=== PATIENT | male | born 1955 | race Two or more races ===

== ENCOUNTER 2024-12-25 00:25 | Emergency (ER) | payer OTHER ==
[~2024-12-25] VITALS: Ht 167.6 cm; Wt 56.6 kg
--- NOTE | 2024-12-25 00:55 | ED.PDOC ---
GI ASSESSMENT HPI Comments 69-year-old male with history of diabetes brought in by family for evaluation of upper abdominal pain radiating to the back since last night. Patient states he had similar symptoms in the past but was never evaluated by a physician. He states he has been experiencing abdominal pain since 7:00 p.m. last night. Patient describes the pain as sharp/ripping, constant, severe, and radiating to the mid back. He denies any fever, nausea, vomiting, diarrhea, constipation or dysuria. Chief Complaint: Abdominal Pain Time Seen by MD: 00:55 Reviewed Notes: Nurses Notes Allergies: Coded Allergies: NO KNOWN ALLERGIES (Unverified , 12/25/24) Information Source: Patient, Relative Mode of Arrival: Ambulatory Timing: Hours Duration: Since onset Quality: Sharp Vomitus: Watery Stool: Normal Severity: Moderate Recent: None Recent Hx of: None Pain Location: Epigastric, RUQ, LUQ Modifying Factors: Nothing Associated sign and symptoms: Abdominal Pain, Other (Back pain) Past Medical History PAST MEDICAL HISTORY: DM Surgical History: Denies all surgeries Family History Family History: Reviewed,noncontributory to illness Social History Smoker: Non-Smoker Alcohol: Occasionally Drugs: Denies Drug Use Lives In: Home Constitutional: denies: chills, diaphoresis, fatigue, fever, malaise, sweats, weakness, others EENTM: denies: blurred vision, double vision, ear bleeding, ear discharge, ear drainage, ear pain, ear ringing, eye pain, eye redness, hearing loss, mouth pain, mouth swelling, nasal discharge, nose bleeding, nose congestion, nose pain, photophobia, tearing, throat pain, throat swelling, voice changes, others Respiratory: denies: cough, hemoptysis, orthopnea, SOB at rest, shortness of breath, SOB with excertion, stridor, wheezing, others Cardiovascular: denies: chest pain, dizzy spells, diaphoresis, Dyspnea on exertion, edema, irregular heart beat, left arm pain, lightheadedness, palpitations, PND, syncope, others Gastrointestinal: reports: abdominal pain; denies: abdomen distended, blood streaked bowels, constipated, diarrhea, dysphagia, difficulty swallowing, hematemesis, melena, nausea, poor appetite, poor fluid intake, rectal bleeding, rectal pain, vomiting, others Genitourinary: denies: burning, dysuria, flank pain, frequency, hematuria, incontinence, penile discharge, penile sore, pain, testicle pain, testicle swelling, urgency, others Neurological: denies: dizziness, fainting, headache, left sided numbness, left sided weakness, numbness, paresthesia, pre-existing deficit, right sided numbness, right sided weakness, seizure, speech problems, tingling, tremors, weakness, others Musculoskeletal: reports: back pain; denies: gout, joint pain, joint swelling, muscle pain, muscle stiffness, neck pain, others Integumetry: denies: bruises, change in color, change in hair/nails, dryness, laceration, lesions, lumps, rash, wounds, others Allergic/Immunocompromised: denies: Difficulty Healing, Frequent Infections, Hives, Itching, others Hematologic/Lymphatic: denies: anemia, blood clots, easy bleeding, easy brui sing, swollen glands, others Endocrine: denies: excessive hunger, excessive sweating, excessive thirst, ex cessive urination, flushing, intolerance to cold, intolerance to heat, unexplained weight gain, unexplained weight loss, others Psychiatric: denies: anxiety, bipolar disorder, depression, hopeless, panic disorder, schizophrenia, sleepless, suicidal, others Physical Exam General Appearance: No Apparent Distress HEENT: Other (Pupils and face symmetric. Moist mucous membranes.) Neck: Full Range of Motion, Normal Inspection Respiratory: Lungs Clear, No Accessory Muscle Use, No Respiratory Distress, Normal Breath Sounds Cardiovascular: No Edema, No JVD, Regular Rate/Rhythm Breast Exam: Deferred Gastrointestinal: Epigastric, LUQ, RUQ, Soft, Tenderness Genitalia: Deferred Pelvic: Deferred Rectal: Deferred Extremities: Normal inspection, Normal range of motion, Non-tender, No pedal edema Neurologic: Alert (Oriented x4), Normal Affect, Normal Mood, Other (Ambulatory) Cerebellar Function: NOT DONE Reflexes: NOT DONE Skin: Dry, Normal Color, Warm Lymphatic: NOT DONE Was a procedure done? Was a procedure done?: No GI differential Dx Differential Diagnosis: Cholecystitis, Diverticular disease, Esophagitis, Gastritis/PUD, Gastroenteritis, Hernia, Ischemic Bowel, Pancreatitis, UTI, Food Poisoning, Stress Ulcer X-Ray, Labs, Meds, VS Vital Signs Date Time Temp Pulse Resp B/P (MAP) Pulse Ox O2 Delivery O2 Flow Rate FiO2 6/29/25 02:36 80 12/25/24 02:36 97.8 80 20 139/63 (88) 98 97.8 12/25/24 00:45 98.0 84 16 143/72 (95) 98 98.0 Lab Test 12/25/24 03:30 12/25/24 01:38 12/25/24 00:49 12/24/24 00:45 Range/Units Lactic Acid Level Pending 2.2 *H 0.4-2.0 mmol/L Troponin I High Sensitivity Pending 5 6 </=54 ng/L White Blood Count 5.8 4.4-10.8 10^3/uL Red Blood Count 4.12 L 4.5-5.90 10^6/uL Hemoglobin 14.3 13.5-17.5 g/dL Hematocrit 41.9 41.0-53.0 % Mean Corpuscular Volume 101.8 H 80.0-100.0 fL Mean Corpuscular Hemoglobin 34.7 H 28.0-32.0 pg Mean Corpuscular Hemoglobin Concent 34.1 32.0-36.0 g/dL Red Cell Distribution Width 13.4 11.8-14.3 % Platelet Count 162 140-450 10^3/uL Mean Platelet Volume 6.8 L 6.9-10.8 fL Neutrophils (%) (Auto) 75.1 37.0-80.0 % Lymphocytes (%) (Auto) 17.0 10.0-50.0 % Monocytes (%) (Auto) 7.6 0.0-12.0 % Eosinophils (%) (Auto) 0.1 0.0-7.0 % Basophils (%) (Auto) 0.2 0.0-2.0 % Neutrophils # (Auto) 4.3 1.6-8.6 10 ^3/uL Lymphocytes # (Auto) 1.0 0.4-5.4 10 ^3/uL Monocytes # (Auto) 0.4 0-1.3 10 ^3/uL Eosinophils # (Auto) 0 0-0.8 10 ^3/uL Basophils # (Auto) 0 0-0.2 10 ^3/uL Nucleated Red Blood Cells 0.0 % Sodium Level 137 136-145 mmol/L Potassium Level 4.0 3.5-5.1 mmol/L Chloride Level 99 98-107 mmol/L Carbon Dioxide Level 24 20-31 mmol/L Anion Gap 14 5-15 Blood Urea Nitrogen 30 H 9-23 mg/dL Creatinine 1.40 H 0.700-1.30 mg/dL Glomerular Filtration Rate Calc 54 >90 mL/min BUN/Creatinine Ratio 21.4 H 10.0-20.0 Serum Glucose 216 H 74-106 mg/dL Calcium Level 9.9 8.7-10.4 mg/dL Total Bilirubin 0.5 0.2-1.0 mg/dL Aspartate Amino Transferase (AST) 22 <34 U/L Alanine Aminotransferase (ALT) 14 7-40 U/L Alkaline Phosphatase 52 46-116 U/L Total Protein 7.4 5.7-8.2 g/dL Albumin 4.6 3.2-4.8 g/dL Lipase 70 H 12-53 U/L Urine Color Light-yellow Yellow Urine Clarity Clear Clear Urine pH 5.0 5.0-9.0 Urine Specific [place] 1.029 1.001-1.035 Urine Protein Negative Negative Urine Ketones 1+ H Negative Urine Blood Negative Negative /uL Urine Nitrite Negative Negative Urine Bilirubin Negative Negative Urine Urobilinogen Normal Negative mg/dL Urine Leukocyte Esterase Negative Negative /uL Urine RBC 1 0 - 3 /hpf Urine Microscopic WBC 0-3 /HPF Urine Squamous Epithelial Cells None seen <5 /hpf Urine Bacteria None seen None Seen /hpf Urine Glucose 4+ H Normal mg/dL Current Medications Medications (Trade) Dose Ordered Sig/Vibha Route Start Time Stop Time Status Last Admin Ondansetron HCl (Zofran) 4 mg ONCE ONCE IV 12/25/24 00:45 12/25/24 00:46 DC 12/25/24 03:13 Pantoprazole Sodium (Protonix) 40 mg ONCE ONCE IV 12/25/24 01:30 12/25/24 01:33 DC 12/25/24 03:13 Sodium Chloride 1,000 ml @ 1,000 mls/hr Q1H ONCE IV 12/25/24 02:45 12/25/24 03:44 DC 12/25/24 03:05 PROCEDURE(s): ABPLIV - CT AB PEL WITH IV CON ONLY REASON: mid abd pain rad to back ORDER NUMBER(s): [id number], ACCESSION NUMBER(s): [id number] Exam: CT CT AB PEL WITH IV CON ONLY History: mid abd pain rad to back COMPARISON: None Technique: Multidetector spiral CT of the abdomen and pelvis was performed from lung bases to pubic symphysis. Intravenous contrast was administered during this examination. Portal venous imaging was obtained. Axial, coronal and sagittal multiplanar reformats were performed by the technologist on a separate workstation. Radiation Dose : 1. Abdomen/Pelvis: CTDIvol 7.22 mGy, DLP 428.83 mGy*cm. CONTRAST: Type of contrast: Omnipaque 300 Contrast injected: 100 ml Findings: Lung Bases: No acute or significant lung base finding. Normal heart size. No pleural or pericardial effusion. Liver: The liver is normal in size. No focal lesions. Normal hepatic vascular enhancement. Gallbladder and Biliary Tree: Gallbladder distention and cholelithiasis. Spleen: Unremarkable Pancreas: The pancreas is normal in appearance without focal lesions or abnormal enhancement. Adrenal Glands: Unremarkable Kidneys: No hydronephrosis or nephrolithiasis. Bilateral renal cortical cysts measure up to 2.3 cm. Bladder: Unremarkable Bowel: The stomach is grossly normal in appearance. Retained stool throughout the colon. Small bowel and colon are otherwise normal in caliber and distribution. The appendix is not visualized; however, no secondary findings of acute appendicitis identified. Ascites: Absent Lymphadenopathy: No mesenteric, retroperitoneal or periportal lymphadenopathy. Abdominal Wall and Mesentery: Unremarkable. Vasculature: The visualized abdominal aorta is normal in size and caliber. Atherosclerotic vascular calcifications. Abdominal and pelvic vessels demonstrate normal enhancement. Pelvic Organs: The prostate is moderately enlarged, measuring 5.7 cm transverse. Musculoskeletal: No aggressive focal bony lesions, acute fractures or dislocation. IMPRESSION: 1. Gallbladder distention and cholelithiasis. 2. Retained colonic stool. 3. Prostatomegaly. Radiation optimization: All CT scans at this facility use at least one of these dose optimization techniques: automated exposure control mA and/or kV adjustment per patient size (includes targeted exams where dose is matched to clinical indication) or iterative reconstruction. X-Ray, Labs, Meds, VS Comment 69-year-old male with a history of diabetes complaining of upper abdominal pain radiating to the back Vitals remarkable for BP 143/72 Exam remarkable for upper abdominal tenderness to palpation Rhythm strip independently interpreted by me: Sinus rhythm, rate 84, no ectopy. CT abdomen and pelvis IMPRESSION: 1. Gallbladder distention and cholelithiasis. 2. Retained colonic stool. 3. Prostatomegaly. CBC unremarkable, comprehensive metabolic panel remarkable for BUN 30, creatinine 1.4, lipase 70, troponin negative, UA ketones and glucose, lactate 2.2 Patient treated with the following in the ED: Morphine 4 mg IV, Zofran 4 mg IV, Protonix 40 mg IV, 1 L 0.9 normal saline IV bolus Re-evaluation, patient states pain has improved. Vitals were stable. Plan is to transfer the patient for GI evaluation and pain control. Case discussed with Dr. Hernandes at [facility], who will arrange for the patient to be transferred. Authorization [id number] Time of 1ST Reevaluation: 00:52 Reevaluation 1ST: Unchanged Patient Education/Counseling: Diagnosis, Treatment Family Education/Counseling: Diagnosis, Treatment SEPSIS Sepsis Screen Date sepsis recognized/suspect: Dec 25, 2024 Time Sepsis recognized/suspect: 31 Recent Procedure: No On Antibiotic Therapy: No Respiratory Rate >20: No Heart Rate >90: No Temp<36 C (96.8 F) or >38.3 C: No SBP <90 or MAP <65 mmHG: No New Acute Mental Status Change: No Is the patient on CPAP, BIPAP,: No Physician Orders Troponin-I Hs (12/25/24 06:00) Ct Ab Pel With Iv Con Only (12/25/24 00:36) Vital Signs Date Time Temp Pulse Resp B/P (MAP) Pulse Ox O2 Delivery O2 Flow Rate FiO2 12/25/24 02:36 80 12/25/24 02:36 97.8 80 20 139/63 (88) 98 97.8 12/25/24 00:45 98.0 84 16 143/72 (95) 98 98.0 Laboratory Tests Test 12/25/24 00:49 12/25/24 01:38 12/25/24 03:30 White Blood Count 5.8 10^3/uL (4.4-10.8) Lactic Acid Level 2.2 mmol/L (0.4-2.0) *H Pending Medications Medications Dose Ordered Sig/Vibha Route Start Time Stop Time Status Last Admin Dose Admin Ondansetron HCl 4 mg ONCE ONCE IV 12/25/24 00:45 12/25/24 00:46 DC 12/25/24 03:13 Pantoprazole Sodium 40 mg ONCE ONCE IV 12/25/24 01:30 12/25/24 01:33 DC 12/25/24 03:13 Sodium Chloride 1,000 ml @ 1,000 mls/hr Q1H ONCE IV 12/25/24 02:45 12/25/24 03:44 DC 12/25/24 03:05 Departure 1 Departure Time of Disposition: 02:37 Impression: Primary Impression: Acute gallstone pancreatitis Disposition: 02 SHORT TERM HOSPITAL Admit to: Med Surg Condition: Guarded Critical Care Note Critical Care Time?: No Stability Stability form required: No Heart Score Heart Score: Heart Score Response (Comments) Value History N/A 0 EKG N/A 0 Age N/A 0 Risk Factors N/A 0 Troponin N/A 0 Total 0 I personally scribed for MARGARET LOZANO MD ([email or web address]) on 12/25/24 at 00:55. Electronically submitted by Satya Rousseau ([facility]). I personally scribed for MARGARET LOZANO MD ([email or web address]) on 12/25/24 at 03:32. Electronically submitted by Satya Rousseau ([facility]). MARGARET LOZANO MD Dec 25, 2024 00:55
[2024-12-25 00:58] LABS: Basophils # (auto) 0 10 ^3/uL (0-0.2); Basophils % (auto) 0.2 % (0.0-2.0); Eosinophils # (auto) 0 10 ^3/uL (0-0.8); Eosinophils % (auto) 0.1 % (0.0-7.0); Hematocrit 41.9 % (41.0-53.0); Hemoglobin 14.3 g/dL (13.5-17.5); Mean Corpuscular Hemoglobin 34.7 pg (28.0-32.0); Mean Corpuscular Hgb Conc. 34.1 g/dL (32.0-36.0); Mean Corpuscular Volume 101.8 fL (80.0-100.0); Monocytes # (auto) 0.4 10 ^3/uL (0-1.3); Monocytes % (auto) 7.6 % (0.0-12.0); Neutrophils # (auto) 4.3 10 ^3/uL (1.6-8.6); Neutrophils % (auto) 75.1 % (37.0-80.0); Platelet Count (auto) 162 10^3/uL (140-450); Red Blood Cells 4.12 10^6/uL (4.5-5.90); Red Cell Distribution Width 13.4 % (11.8-14.3); White Blood Cell 5.8 10^3/uL (4.4-10.8)
[2024-12-25 01:07] LABS: Urine Bacteria None Seen /hpf (None Seen)
[2024-12-25 01:15] LABS: Alanine Aminotransferase 14 U/L (7-40); Albumin 4.6 g/dL (3.2-4.8); Alkaline Phosphatase 52 U/L (46-116); Anion Gap 14 (5-15); Aspartate Aminotransferase 22 U/L (<34); BUN/Creatinine Ratio 21.4 (10.0-20.0); Bilirubin, Total 0.5 mg/dL (0.2-1.0); Calcium 9.9 mg/dL (8.7-10.4); Carbon Dioxide 24 mmol/L (20-31); Chloride 99 mmol/L (98-107); Sodium 137 mmol/L (136-145); Total Protein 7.4 g/dL (5.7-8.2)
[2024-12-25 01:17] LABS: Blood Urea Nitrogen 30 mg/dL (9-23); Glucose 216 mg/dL (74-106); Lipase 70 U/L (12-53)
[2024-12-25 01:18] LABS: Urine Blood Negative /uL (Negative); Urine Clarity Clear (Clear); Urine Color Light-Yellow (Yellow); Urine Protein, UAD Negative (Negative); Urine Specific Gravity 1.029 (1.001-1.035); Urine Squamous Epithelial Cell None Seen /hpf (<5); Urine Urobilinogen Normal (Negative)
[2024-12-25 02:24] LABS: Lactic Acid w/Reflex 2.2 mmol/L (0.4-2.0)
[2024-12-25] MEDS: SODIUM CHLORIDE 0.9% 1,000 ML IV ONE (03:05)
[2024-12-25] MEDS: IOHEXOL 300 MG/ML 100ML BOTTLE IJ ONE (03:05)
--- NOTE | 2024-12-25 03:12 | DVH ---
Exam: CT CT AB PEL WITH IV CON ONLY History: mid abd pain rad to back COMPARISON: None Technique: Multidetector spiral CT of the abdomen and pelvis was performed from lung bases to pubic s ymphysis. Intravenous contrast was administered during this examination. Portal venous imaging was o btained. Axial, coronal and sagittal multiplanar reformats were performed by the technologist on a [employer] workstation. Radiation Dose : 1. Abdomen/Pelvis: CTDIvol 7.22 mGy, DLP 428.83 mGy*cm. CONTRAST: Type of contrast: Omnipaque 300 Contrast injected: 100 ml Findings: Lung Bases: No acute or significant lung base finding. Normal heart size. No pleural or pericardial effusion. Liver: The liver is normal in size. No focal lesions. Normal hepatic vascular enhancement. Gallbladder and Biliary Tree: Gallbladder distention and cholelithiasis. Spleen: Unremarkable Pancreas: The pancreas is normal in appearance without focal lesions or abnormal enhancement. Adrenal Glands: Unremarkable Kidneys: No hydronephrosis or nephrolithiasis. Bilateral renal cortical cysts measure up to 2.3 cm . Bladder: Unremarkable Bowel: The stomach is grossly normal in appearance. Retained stool throughout the colon. Small bowel and colon are otherwise normal in caliber and distribution. The appendix is not visualized; however, no secondary findings of acute appendicitis identified. Ascites: Absent Lymphadenopathy: No mesenteric, retroperitoneal or periportal lymphadenopathy. Abdominal Wall and Mesentery: Unremarkable. Vasculature: The visualized abdominal aorta is normal in size and caliber. Atherosclerotic vascular c alcifications. Abdominal and pelvic vessels demonstrate normal enhancement. Pelvic Organs: The prostate is moderately enlarged, measuring 5.7 cm transverse. Musculoskeletal: No aggressive focal bony lesions, acute fractures or dislocation. IMPRESSION: 1. Gallbladder distention and cholelithiasis. 2. Retained colonic stool. 3. Prostatomegaly. Radiation optimization: All CT scans at this facility use at least one of these dose optimization cheng hniques: automated exposure control mA and/or kV adjustment per patient size (includes targeted exam s where dose is matched to clinical indication) or iterative reconstruction.
[2024-12-25] MEDS: ONDANSETRON HCL 4 MG/2 ML VIAL IV ONE (03:13)
[2024-12-25] MEDS: PANTOPRAZOLE 40 MG/10 ML VIAL INJ IV ONE (03:13)
[2024-12-25] MEDS: MORPHINE SULFATE 4 MG/ML SYR/VIAL IV ONE (03:13)
[2024-12-25 07:29] VITALS: BP 159/68; PULSE 92; RESP 17; TEMP 98.1; O2SAT 98
== END 2024-12-25 10:12 | disposition left against medical advice (07) ==
LOC: ER 00:25
DX: K85.10 Biliary acute pancreatitis without necrosis or infection (principal); F10.90 Alcohol use, unspecified, uncomplicated; E11.9 Type 2 diabetes mellitus without complications; Y90.9 Presence of alcohol in blood, level not specified
CPT/HCPCS: 36415; 74177; 80053; 81001; 83605; 83690; 84484; 85025; 96374; 96375; 99285; J2270; J2405; J2470; J7030; Q9967